=== PATIENT | female | born 1985 | race Caucasian/White ===

== ENCOUNTER 2019-05-12 19:07 | Emergency (ER) | payer MEDICAID, SELFPAY ==
[2019-05-12 19:08] VITALS: BP 133/98; PULSE 110; RESP 18; TEMP 37.1; O2SAT 97; BMI 31.1
--- NOTE | 2019-05-12 19:46 | W.ED.EXTPRO ---
HPI - Extremity Problem General: Chief complaint: Extremity Injury, Lower Stated complaint: lump on foot Time Seen by Provider: 05/12/19 19:46 Source: patient Mode of arrival: ambulatory Limitations: no limitations History of Present Illness: HPI Narrative: 33-year-old female comes in for concerns of pain and swelling to the left lower leg and foot. Patient reports family history of blood clots and is concerned that she may have a blood clot. Patient states that her father had psoriasis and similar illnesses as she and he from a blood clot suddenly. Patient appears well. Patient appears in no pain. Review of Systems General: Reports: 10 or more systems reviewed and unremarkable except in HPI and below Musc: Reports: other (pain and swelling right foot and lower leg) PFSH ED PFSH: Social History Smoking and tobacco status: current every day smoker Physical Exam Const: COMMON NORMALS: no apparent distress and oriented x3 GENERAL APPEARANCE: cooperative HENMT: COMMON NORMALS: normocephalic, TM's normal bilaterally and external nose normal HEAD & SCALP: normal to inspection and normocephalic NOSE: external nose normal TYMPANIC MEMBRANE: TM's normal bilaterally MOUTH: oral and palatal mucosa normal THROAT: posterior oropharynx normal Eye: GENERAL EYE: normal appearance of both eyes Neck/C-Spine: COMMON NORMALS: full ROM Lymph: LYMPHATIC: no lymphadenopathy noted Chest: COMMONS NORMALS: inspection of chest normal Resp: COMMON NORMALS: normal respiratory effort EFFORT & INSPECTION: Yes able to speak in complete sentences Cardio: COMMON NORMALS: regular rate and regular rhythm RATE: regular rate RHYTHM: regular rhythm GI: COMMON NORMALS: non-tender : COMMON NORMALS: Yes no CVA tenderness BLADDER/KIDNEY EXAM: Yes no CVA tenderness Back/Pelvis: COMMON NORMALS: no CVA tenderness and thoracic and lumbar spine normal to inspection Extremity: NARRATIVE EXTREMITY EXAM: Psoriatic lesions are noted to bilateral feet. Pulses are intact in bilateral feet. Minimal swelling is noted to the right lower extremity. Patient does report positive Homans sign with evaluation of the right lower extremity. Neuro: COMMON NORMALS: oriented x3 and moves all extremities Psych: COMMON NORMALS: mental status grossly normal and cooperative Skin: COMMON NORMALS: no rashes or lesions noted GENERAL SKIN EXAM: no rashes or lesions noted Course Vital Signs: Vital signs: Vital Signs Temperature 98.7 F 05/12/19 19:08 Pulse Rate 110 H 05/12/19 19:08 Respiratory Rate 18 05/12/19 19:08 Blood Pressure 133/98 05/12/19 19:08 Pulse Oximetry 97 05/12/19 19:08 MDM - Extremity (Nontraumatic) MDM Narrative: Medical decision making narrative: Patient comes in for concerns of right lower extremity pain with increased swelling and skin color changes. Exam noted minimal discoloration to the lower extremity with some mild plaque lesions to the psoriasis. Pulses are intact. No pitting edema is noted. Differential diagnosis includes arthralgia, DVT, tendinitis. Ultrasound of the lower extremity for DVT was negative. Reviewed exam with patient recommended good supportive shoes as patient was wearing flat soled shoes with no significant support to the feet. Also discussed maybe further evaluation for neuropathy. Recommended naproxen twice daily for the next week to see if that would help with her discomfort. Recommend follow-up with primary care for further consideration and treatment. Patient reported understanding. Discharge Plan Discharge Patient Disposition: Home, Self-Care Clinical Impression: Acute pain of right lower extremity, Psoriasis Foot pain Qualifiers: Laterality: unspecified laterality Qualified Code(s): M79.673 - Pain in unspecified foot Condition: Stable Prescriptions: New naproxen 500 mg tablet 500 mg PO Q12H PRN (Reason: pain) Qty: 60 RF: 0 Discharge Orders: Discharge Order (Routine); Ordered 05/12/19 Ordered By: Keith Bowser Referrals: Carroll Dillard APN [Primary Care Provider] - Discharge Diet: Usual diet Discharge Activity: Increase activity as tolerated Patient Instructions: Arthralgia (ED) Activity Restrictions/Additional Instructions: Use Naproxen routinely for the next week for a trial of pain Use acetaminophen for breakthrough pain Wear good supportive shoe Follow-up with primary care in one week Return to ER for worsening symptoms or new concerns Coding Level of Care Code ED Container Finishing Inspector for Willisg Fwd Exam Comprehensive
--- NOTE | 2019-05-12 20:05 | USCV_ITS ---
Elida Omalley Age: 33 Gender: F : 1985 Exam Date: 05/12/2019 20:35 Ordering Phys: Keith Bowser Technologist: Isidoro Clemente Exam Location: [facility] [place] Indication: SWELLING HISTORY: Lower extremity pain. PROCEDURES: Venous duplex imaging was performed in only the right lower extremity. The following venous structures were evaluated: common femoral vein, profunda vein, proximal portion of the greater saphenous vein, superficial femoral vein, and the popliteal vein. In addition, the posterior tibial and peroneal trunk were evaluated. Serial compression, augmentation maneuvers, and spectral Doppler flow evaluation were performed. FINDINGS: Normal 2-D Doppler and augmentation and compressibility throughout the lower extremity venous structures. Additional imaging through the proximal calf veins also reveals no thrombus. Limited evaluation of the greater saphenous vein is patent with no thrombus.. CONCLUSIONS No evidence of right lower extremity DVT. Isaias Reeves MD (Electronically Signed) Final Date: 13 May 2019 16:46 S
[2019-05-12 21:13] VITALS: BP 128/97; PULSE 80; RESP 14; O2SAT 100
== END 2019-05-12 21:14 | disposition home or self-care (01) ==
PROVIDERS: Emergency Provider Nurse Practitioner Family; PCP Nurse Practitioner Family
DX: M79.671 Pain in right foot (principal); M79.89 Other specified soft tissue disorders; F17.200 Nicotine dependence, unspecified, uncomplicated
CPT/HCPCS: 12345; 93971; 99281; 99282

== ENCOUNTER 2020-03-13 09:49 | Emergency (ER) | payer MEDICAID, SELFPAY ==
[2020-03-13 09:54] VITALS: BP 171/119; PULSE 154; TEMP 36.9; O2SAT 98; BMI 36.5
[2020-03-13 10:01] VITALS: PULSE 143; RESP 17; O2SAT 98
--- NOTE | 2020-03-13 10:30 | ED_ITS ---
HPI - General Adult General: Chief complaint: General Medical Stated complaint: Breast pain/Swelling Time Seen by Provider: 03/13/20 09:56 History of Present Illness: HPI narrative: Patient is a 34-year-old female comes to the ED with bilateral breast pain and swelling. Patient has past medical history of psoriatic arthritis. She does not currently take anything for psoriatic arthritis. Patient was seen at PCP 2 days ago for same complaint and they told her that breast pain and redness of skin on breasts is probably likely due to sporadic arthritis and patient was given a steroid shot while at PCP. Patient says she has not had any improvement in symptoms since . Patient says she has had breast tenderness for over a month. Within the last week she noticed that she is having breast swelling and erythema on the skin of the breast. She states that her right breast is more painful than her left. She describes the pain as a burning sensation and she rates it a 7 out of 10. Right areola occasionally inverts, but is not inverted at this time. She also feels a tender nodule under her right axillary region. Patient did undergo bilateral breast reduction surgery over 10 years ago. Denies any fever, chills, nipple discharge, vaginal bleeding/discharge. Endorses some night sweats and says that she will get her psoriasis flares up on her hands and feet but is not currently having a flare. Patient says her mother's side has a history of breast cancer. Associated symptoms: Deny chest pain, dyspnea, headache(s), nausea, rash, palpitations or vomiting Review of Systems Const: Reports: night sweats; Denies: fever(s), chills or fatigue Eyes: Denies: change in vision or eye discomfort ENMT: Denies: throat pain, odynophagia, nasal discharge or nasal congestion Card: Denies: chest pain, palpitations, edema, swelling of feet/ankles, dyspnea on exertion or orthopnea Resp: Denies: dyspnea, productive cough or non-productive cough GI: Denies: abdominal pain, nausea, vomiting, diarrhea, constipation or hematochezia : Denies: flank pain, dysuria or hematuria Musc: Denies: neck pain, back pain or extremity swelling Skin/Breast: Reports: breast tenderness, breast pain (bilateral breast pain), breast swelling and breast skin changes (redness); Denies: rash, new lesions or nipple discharge Neuro: Denies: headache(s), numbness in extremities or weakness in extremities PFSH ED PFSH: Social History Smoking and tobacco status: current every day smoker Physical Exam Const: COMMON NORMALS: patient oriented x3 and alert GENERAL APPEARANCE: cooperative, comfortable and anxious HENMT: COMMON NORMALS: normocephalic HEAD & SCALP: normocephalic MOUTH: Normal oral and palatal mucosa present THROAT: posterior oropharynx normal and uvula midline Neck/C-Spine: COMMON NORMALS: supple GENERAL: Yes normal visual inspection Chest: BREAST/AXILLA PALPATION: Yes abnormal palpation of the axilla right Details: mass (1.5) Details: tender, nodular and fluctuant and tenderness, left Details: mass (Multiple small less than 0.5 cm size) Details: mobile, nodular and fluctuant NIPPLE/AREOLA: Yes nipples/areola normal and No nipple discharge OTHER: Breast exam performed. Nurse was present during exam. No nodules or mass palpated on breast bilaterally. Patient reported tenderness throughout both right and left breast upon exam. Erythema of breast skin bilaterally with no warmth. Resp: COMMON NORMALS: normal respiratory effort, No retractions, No use of accessory muscles and clear to auscultation bilaterally AUSCULTATION: clear to auscultation bilaterally Cardio: COMMON NORMALS: regular rate, regular rhythm, S1 normal heart sound present, S2 normal heart sound present, No gallops present (Cardio), No clicks present (Cardio), No murmurs present (Cardio) and Peripheral pulses 2+ throughout RATE: regular rate RHYTHM: regular rhythm HEART SOUNDS: S1 normal heart sound present and S2 normal heart sound present PERIPHERAL PULSES: Peripheral pulses 2+ throughout GI: COMMON NORMALS: Normal to inspection, nondistended, normoactive bowel sounds present, Soft to palpation, non-tender and no masses PALPATION: Yes Soft to palpation : COMMON NORMALS: Yes no CVA tenderness BLADDER/KIDNEY EXAM: Yes no CVA tenderness Back/Pelvis: COMMON NORMALS: no CVA tenderness Extremity: COMMON NORMALS: normal to inspection Neuro: COMMON NORMALS: patient oriented x3 and moves all extremities SENSORIUM/ORIENTATION: Yes alert Psych: MOOD & AFFECT: Yes anxious and Yes tearful Skin: GENERAL SKIN EXAM: dry skin Course Vital Signs: Vital signs: Vital Signs Temperature 98.4 F 03/13/20 13:41 Pulse Rate 97 03/13/20 13:41 Respiratory Rate 18 03/13/20 13:41 Blood Pressure 142/98 03/13/20 13:41 Pulse Oximetry 98 03/13/20 13:41 MDM - General Adult MDM Narrative: Medical decision making narrative: Patient is a 34-year-old female comes to the ED with bilateral breast tenderness and erythema. Patient has a history of psoriatic arthritis. Patient was seen at her PCP for same complaint 2 days ago and the PCP determined this was likely due to her psoriatic arthritis and she was given a steroid injection to help symptoms. Patient is very anxious and worried about her current symptoms. She is emotional and crying during history and exam. Exam findings?tenderness to breast bilaterally throughout the breast. Erythema of skin without any warmth. No nodules or masses palpated on breast. No nipple discharge seen. Some palpable lymph nodes under both right and left axillary. Ultrasound of breasts showed no masses or cysts seen. While here in the ED patient was given some morphine and hydrocodone to help with pain and she was also given a dose of Ativan to help with anxiety. Patient was diagnosed with some breast tenderness and erythema of breath and told to follow-up with her PCP on Sunday to discuss getting a mammogram. I discharged her with a prescription for Medrol Dosepak to help with breast symptoms if due to inflammatory disease and Vistaril for anxiety. Return to ED precautions given. Patient understood and agreed with plan. Imaging Data^: US: Attestation: I personally reviewed and interpreted this imaging study as follows: Radiologist's impression: [address] [address] Ultrasound Report Signed Patient: Elida Omalley Unit #: [id number] : 1985 Age/Sex: 34 / F ADM Date: 03/13/20 Loc: ER Room/Bed: Attending Dr: Ordering Provider/Ordering MD: Silviano Green Date of Service: 03/13/20 Procedure(s): US breast BI complete [id number] Accession Number(s): [id number] Report Number: [id number] PROCEDURE INFORMATION: Exam: US bilateral Breast, Complete Exam date and time: 03/13/2020 11:23 AM Age: 34 years old Clinical indication: Breast pain; Bilateral; Patient HX: H/o breast reduction (some years ago); Additional info: Bilateral breast pain TECHNIQUE: Imaging protocol: Complete ultrasound of all four quadrants of the bilateral breast and the retroareolar regions, including ultrasound of the axillae when performed. COMPARISON: Delete brackets US Breast Limited RIGHT [id number] 03/16/2016 2:17 PM FINDINGS: Bilateral Breast: There is unremarkable soft tissue sonographic architecture seen within the breasts. Negative for sonographic evidence of solid or cystic mass lesions. No evidence of duct ectasia is seen. No subcutaneous fluid collections are noted. Comparison to prior right breast sonogram similar findings is seen US/US breast BI complete [id number] IMPRESSION: Negative left breast sonogram. ASSESSMENT: BI-RADS 1 negative exam Dictated By: Ab De Leon Signed By: Ab De Leon Signed Date/Time: 03/13/20 1307 DD/ 1306 EKG Data^: EKG 1: Attestation: I personally reviewed and interpreted this EKG as follows: EKG interpretation date: 03/13/20 Interpretation: Sinus tachycardia, 101 bpm, no ST segment elevation or depression seen. Computer generated interpretation: Breast Ultrasound 03/13/20 10:53 IMPRESSION: Negative left breast sonogram. ASSESSMENT: BI-RADS 1 negative exam Discharge Plan Discharge Patient Disposition: Home Clinical Impression: Breast tenderness, Erythema of breast Condition: Stable Prescriptions: New Medrol (Eliel) 4 mg tablets,dose pack See Rx Instructions .ROUTE .COMPLEX Qty: 21 RF: 0 Vistaril 50 mg capsule 50 mg PO Q8H PRN (Reason: anxiety) Qty: 30 RF: 0 No Action trazodone 50 mg tablet 50 mg PO BEDTIME@1800 RF: 0 One-A-Day Women's Complete 18 mg-400 mcg- 25 mcg Tablet 1 tab PO DAILY@0800 RF: 0 Discharge Orders: Discharge ED (Routine); Ordered 03/13/20 Ordered By: Silviano Green Referrals: Carroll,YONI Dillard [Primary Care Provider] - Discharge Diet: Regular Discharge Activity: Resume usual activity Patient Instructions: Breast Pain Activity Restrictions/Additional Instructions: Follow-up with medical provider as directed in 7 to 10 days for reevaluation. Discuss with your PCP about potentially getting a mammogram if needed for further evaluation of breast pain. Take medications as prescribed. Return to the ER or your medical provider if condition worsens. Please read and understand discharge instructions. If any questions, please ask. Coding Level of Care Code ED Bricklayer Paving Brick for Chg Fwd Exam Comprehensive
--- NOTE | 2020-03-13 10:30 | ECG_ITS ---
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 Measurements Intervals [place] Rate: 101 P: 55 AR: 141 QRS: 64 QRSD: 86 T: 43 QT: 312 QTc: 405 Interpretive Statements SINUS TACHYCARDIA POSSIBLE LEFT ATRIAL ENLARGEMENT [-0.1mV P WAVE IN V1/V2] Compared to ECG 04/28/2017 09:53:45 Sinus rhythm no longer present Electronically Signed On 03-13-2020 10:53:39 [employer] by Sina Blandon M.D. [id number]
[2020-03-13 10:47] VITALS: RESP 18
[2020-03-13] MEDS: morphine 4 mg/mL SDV 1 mL IM (10:47)
--- NOTE | 2020-03-13 10:53 | USR_ITS ---
PROCEDURE INFORMATION: Exam: US bilateral Breast, Complete Exam date and time: 03/13/2020 11:23 AM Age: 34 years old Clinical indication: Breast pain; Bilateral; Patient HX: H/o breast reduction (some years ago); Additional info: Bilateral breast pain TECHNIQUE: Imaging protocol: Complete ultrasound of all four quadrants of the bilateral breast and the retroareolar regions, including ultrasound of the axillae when performed. COMPARISON: Delete brackets US Breast Limited RIGHT [id number] 03/16/2016 2:17 PM FINDINGS: Bilateral Breast: There is unremarkable soft tissue sonographic architecture seen within the breasts. Negative for sonographic evidence of solid or cystic mass lesions. No evidence of duct ectasia is seen. No subcutaneous fluid collections are noted. Comparison to prior right breast sonogram similar findings is seen US/US breast BI complete [id number] IMPRESSION: Negative left breast sonogram. ASSESSMENT: BI-RADS 1 negative exam
[2020-03-13 11:18] VITALS: BP 171/119; PULSE 103; RESP 18; TEMP 36.9; O2SAT 97
[2020-03-13] MEDS: LORazepam 2 mg Tablet PO (11:26)
[2020-03-13 12:41] VITALS: BP 157/84; PULSE 101; RESP 18; TEMP 36.9; O2SAT 98
[2020-03-13] MEDS: HYDROcodone-acetaminophen 7.5-325 mg Tablet 1 TAB PO ×2 (12:49→13:56)
[2020-03-13 13:41] VITALS: BP 142/98; PULSE 97; RESP 18; TEMP 36.9; O2SAT 98
== END 2020-03-13 13:58 | disposition home or self-care (01) ==
PROVIDERS: Emergency Provider Physician Assistant; PCP Nurse Practitioner Family
DX: N64.4 Mastodynia (principal); L53.8 Other specified erythematous conditions; F17.210 Nicotine dependence, cigarettes, uncomplicated
CPT/HCPCS: 12345; 76641; 93005; 96372; 99281; 99283; J2270

== ENCOUNTER 2020-03-17 15:22 | Outpatient (CLI) | payer BC, MEDICAID, SELFPAY ==
[2020-03-17 16:03] LABS: Basophils # 0.1 10^3/uL (0.0-0.1); Basophils % 0.5 %; Eosinophils # 0.3 10^3/uL (0.0-0.8); Eosinophils % 2.6 %; Hematocrit 41.9 % (37.0-47.0); Lymphocytes # 5.8 10^3/uL (0.8-4.8); Lymphocytes % 45.5 %; Mean Corpuscular HGB Conc 33.4 g/dL (30.0-36.0); Mean Corpuscular Hemoglobin 31.6 pg (28.0-34.0); Mean Corpuscular Volume 94.6 fL (81-99); Mean Platelet Volume 9.9 fL (7.4-10.4); Monocytes % 7.5 %; Neutrophils # 5.57 10^3/uL (1.8-7.7); Neutrophils % 43.5 %; Nucleated Red Blood Cells % 0 %; Platelet Count 309 10^3/cmm (130-400); Red Blood Count 4.43 10^6/uL (4.1-5.3); Red Cell Distribution Width 12.3 % (12.1-15.1); White Blood Count 12.8 10^3/uL (4.0-10.0)
[2020-03-17 16:33] LABS: Alanine Aminotransferase 14 U/L (0-33); Alkaline Phosphatase 48 IU/L (35-105); Anion Gap 11.6 (5-19); Aspartate Amino Transferase 9 U/L (0-32); Blood Urea Nitrogen 10 mg/dL (6-20); C Reactive Protein 3.2 mg/L (0.0-4.9); Calcium 8.5 mg/dL (8.5-10.5); Carbon Dioxide 25 mmol/L (22-29); Chloride 105 mmol/L (98-107); Chol HDL Ratio 4.66 mg/dL (0.0-4.40); Cholesterol 163 mg/dL (0-200); Follicle Stimulating Hormone 5.3 mIU/mL; Globulin 2.5 g/dL (1.3-4.6); Glomerular Filtration Rate 96.4 mL/min (90-130); Glucose 97 mg/dL (65-115); HDL Cholesterol 35 mg/dL (60-100); LDL Cholesterol Calculated 71 mg/dL (50-129); LDL HDL Ratio 2.03 RATIO (0.00-3.22); Osmolality Calculated 285 mOsm/kg (285-295); Potassium 3.6 mmol/L (3.5-5.1); Sodium 138 mmol/L (136-145); Thyroid Stimulating Hormone 0.87 uIU/mL (0.27-4.20); Total Bilirubin 0.2 mg/dL (0.15-1.2); Total Protein 6.5 g/dL (6.6-8.7); Triglycerides 285 mg/dL (0-150)
[2020-03-17 16:34] LABS: Estmated Average Glucose 97
[2020-03-17 17:18] LABS: Testosterone Total 8.4 ng/dL (8.4-48.1)
[2020-03-17 17:33] LABS: Erythrocyte Sedimentation Rate 15 mm/hr (0-15)
[2020-03-17 19:45] LABS: Slide Review Slide Review Perform
[2020-03-19 09:38] LABS: T4 Total 6.6 mcg/dL (5.1-11.9)
[2020-03-19 14:17] LABS: Anti-Nuclear Antibody Screen NEGATIVE (NEGATIVE)
== END 2020-03-17 15:23 | disposition home or self-care (01) ==
PROVIDERS: PCP Nurse Practitioner Family; Visit Provider Nurse Practitioner Family
DX: M19.90 Unspecified osteoarthritis, unspecified site (principal); L40.9 Psoriasis, unspecified; M25.50 Pain in unspecified joint; E66.01 Morbid (severe) obesity due to excess calories
CPT/HCPCS: 36415; 80053; 80061; 82670; 83001; 83036; 84144; 84403; 84436; 84443; 85025; 85651; 86038; 86140

== ENCOUNTER 2020-03-25 10:52 | Outpatient (CLI) | payer BC, SELFPAY ==
--- NOTE | 2020-03-25 10:55 | MM_ITS ---
WS: [id number] DIAGNOSTIC BILATERAL DIGITAL MAMMOGRAM WITH CAD RIGHT breast ultrasound, limited HISTORY: FIBROCYSTIC breasts, bilateral BREAST PAIN COMPARISON: 03/16/2016, 03/12/2006 and 03/13/2020 TECHNIQUE: Bilateral craniocaudad, mediolateral oblique, and mediolateral views are submitted. Spot c ompression RIGHT CC and MLO. Computer aided detection utilized. Breast composition: There are scattered areas of fibroglandular density. No soft tissue masses. No sk in thickening. There are a few benign-appearing calcifications within each breast. No underlying abno rmality noted adjacent to the medial RIGHT areolar. RIGHT breast ultrasound, limited. Superficial hypoechoic nodule measuring 5 x 3 x 4 mm at 2:00 in subareolar region. This is most typic al for benign sebaceous cyst. There is no increased vascularity. Otherwise no masses or soft tissue a bnormalities are identified. MM/[place] [id number] IMPRESSION: BI-RADS: 2-Benign FOLLOW UP: See Report 5 mm nodule in the subareolar region of the RIGHT breast. This is most typical for a sebaceous cyst. If this nodule increases in size reevaluation by ultrasou nd can be obtained or surgical excision. Typically sebaceous cysts are not biop sied as they can incite a significant inflammatory reaction.
--- NOTE | 2020-03-25 11:33 | US_ITS ---
WS: [id number] DIAGNOSTIC BILATERAL DIGITAL MAMMOGRAM WITH CAD RIGHT breast ultrasound, limited HISTORY: FIBROCYSTIC breasts, bilateral BREAST PAIN COMPARISON: 03/16/2016, 03/12/2006 and 03/13/2020 TECHNIQUE: Bilateral craniocaudad, mediolateral oblique, and mediolateral views are submitted. Spot c ompression RIGHT CC and MLO. Computer aided detection utilized. Breast composition: There are scattered areas of fibroglandular density. No soft tissue masses. No sk in thickening. There are a few benign-appearing calcifications within each breast. No underlying abno rmality noted adjacent to the medial RIGHT areolar. RIGHT breast ultrasound, limited. Superficial hypoechoic nodule measuring 5 x 3 x 4 mm at 2:00 in subareolar region. This is most typic al for benign sebaceous cyst. There is no increased vascularity. Otherwise no masses or soft tissue a bnormalities are identified. US/US breast RT limited* [id number] IMPRESSION: BI-RADS: 2-Benign FOLLOW UP: See Report 5 mm nodule in the subareolar region of the RIGHT breast. This is most typical for a sebaceous cyst. If this nodule increases in size reevaluation by ultrasou nd can be obtained or surgical excision. Typically sebaceous cysts are not biop sied as they can incite a significant inflammatory reaction.
== END 2020-03-25 10:53 | disposition home or self-care (01) ==
LOC: RADSHAW 10:54
PROVIDERS: PCP Nurse Practitioner Family; Visit Provider Nurse Practitioner Family
DX: N60.12 Diffuse cystic mastopathy of left breast (principal); N60.11 Diffuse cystic mastopathy of right breast; N64.4 Mastodynia; N63.41 Unspecified lump in right breast, subareolar
CPT/HCPCS: 76642; 77066

== ENCOUNTER 2020-04-09 11:59 | Emergency (ER) | payer BC, SELFPAY ==
[2020-04-09 12:12] VITALS: BP 137/83; PULSE 100; RESP 18; TEMP 36.7; O2SAT 97; BMI 36.5
--- NOTE | 2020-04-09 12:47 | ED_ITS ---
HPI - Abdominal Pain General: Chief Complaint: Abdominal Pain Stated Complaint: SHOULDER/UPPER AB PAIN Time Seen by Provider: 04/09/20 12:11 History of Present Illness: HPI narrative: Patient is a 34-year-old female comes to the ED with abdominal pain, nausea and decreased appetite. Past medical history of cholecystectomy and appendectomy. Patient says symptoms started approximately 3 days ago. She reports not eating much at all for the past couple days and has had no appetite. She continues to feel nauseous and has 7 out of 10 abdominal pain in the right upper quadrant. Patient does report diarrhea currently. Denies fever, chills, dysuria or hematuria. Associated Symptoms: Reports diarrhea and nausea; Denies chills, constipation, dysuria, fever(s), hematochezia, hematuria and vomiting Review of Systems Const: Denies: fever(s), chills or fatigue Eyes: Denies: change in vision or eye discomfort ENMT: Denies: throat pain, odynophagia, nasal discharge or nasal congestion Card: Denies: chest pain, palpitations, edema, swelling of feet/ankles, dyspnea on exertion or orthopnea Resp: Denies: dyspnea, productive cough or non-productive cough GI: Reports: abdominal pain, nausea and diarrhea; Denies: vomiting, constipation or hematochezia : Reports: flank pain; Denies: dysuria or hematuria Musc: Denies: neck pain, back pain or extremity swelling Skin/Breast: Denies: rash or new lesions Neuro: Denies: headache(s), numbness in extremities or weakness in extremities PFS ED PFSH: Social History Smoking and tobacco status: current every day smoker Physical Exam Const: COMMON NORMALS: patient oriented x3 and alert GENERAL APPEARANCE: cooperative, comfortable and anxious HENMT: COMMON NORMALS: normocephalic HEAD & SCALP: normocephalic MOUTH: Normal oral and palatal mucosa present THROAT: posterior oropharynx normal and uvula midline Eye: COMMON NORMALS: Equal, round and reactive pupils present PUPIL: Yes Equal, round and reactive pupils present Neck/C-Spine: COMMON NORMALS: supple GENERAL: Yes normal visual inspection Resp: COMMON NORMALS: normal respiratory effort, No retractions, No use of accessory muscles and clear to auscultation bilaterally AUSCULTATION: clear to auscultation bilaterally Cardio: COMMON NORMALS: regular rate, regular rhythm, S1 normal heart sound present, S2 normal heart sound present, No gallops present (Cardio), No clicks present (Cardio), No murmurs present (Cardio) and Peripheral pulses 2+ throughout RATE: regular rate RHYTHM: regular rhythm HEART SOUNDS: S1 normal heart sound present and S2 normal heart sound present PERIPHERAL PULSES: Peripheral pulses 2+ throughout GI: COMMON NORMALS: Normal to inspection, nondistended, normoactive bowel sounds present, Soft to palpation and no masses PALPATION: Yes Soft to palpation and Yes Tenderness to palpation present (GI) Details: RUQ : BLADDER/KIDNEY EXAM: Yes CVA tenderness on the right Back/Pelvis: GENERAL BACK: Yes CVA tenderness CVA tenderness: right Extremity: COMMON NORMALS: normal to inspection Neuro: COMMON NORMALS: patient oriented x3 SENSORIUM/ORIENTATION: Yes alert GAIT: Yes Normal gait present Psych: MOOD & AFFECT: Yes anxious and Yes tearful Skin: GENERAL SKIN EXAM: dry skin Course Reevaluation(s): Reevaluation #1: After patient received IV morphine, fluids and Zofran her symptoms improved here in the ED. Patient ready to be discharged home. Vital Signs: Vital signs: Vital Signs Temperature 98.0 F 04/09/20 12:12 Pulse Rate 98 04/09/20 15:16 Respiratory Rate 18 04/09/20 15:16 Blood Pressure 142/107 04/09/20 15:16 Pulse Oximetry 98 04/09/20 15:16 MDM - Abdominal Pain MDM Narrative: Medical decision making narrative: Patient is a 33-year-old female who comes to the ED with right upper quadrant abdominal pain and nausea. Denies fever, chills, UTI symptoms. Past medical history of cholecystectomy and appendectomy. Physical exam findings are remarkable for right upper quadrant abdominal tenderness and some right CVA tenderness. Vitals stable. White blood cell count 14 and the rest of CBC and CMP were unremarkable. UA showed no signs of UTI. hCG negative and lipase 35. CT of abdomen and pelvis showed no acute findings. Patient's symptoms improved after IV fluids, morphine and Zofran. Patient diagnosed with abdominal pain and discharged home with some Zofran and Bentyl. Return to ED precautions given. Follow-up with her PCP in 7 to 10 days for reevaluation. Patient understood and agreed with plan. Lab Data: Labs: Lab Results 04/09/20 04/09/20 04/09/20 Range/Units 13:20 13:20 13:20 WBC 14.0 H (4.0-10.0) 10^3/ uL RBC 4.77 (4.1-5.3) 10^6/u L Hgb 15.2 (11.5-15.3) g/dL Hct 45.3 (37.0-47.0) % MCV 95.0 (81-99) fL MCH 31.9 (28.0-34.0) pg MCHC 33.6 (30.0-36.0) g/dL RDW 12.5 (12.1-15.1) % Plt Count 312 (130-400) 10^3/c mm MPV 10.0 (7.4-10.4) fL Neut % (Auto) 62.6 % Lymph % (Auto) 29.1 % Vermilion % (Auto) 6.9 % Eos % (Auto) 0.6 % Baso % (Auto) 0.4 % Neut # (Auto) 8.74 H (1.8-7.7) 10^3/u L Lymph # (Auto) 4.1 (0.8-4.8) 10^3/u L Vermilion # (Auto) 1.0 H (0.2-0.9) 10^3/u L Eos # (Auto) 0.1 (0.0-0.8) 10^3/u L Baso # (Auto) 0.1 (0.0-0.1) 10^3/u L Nucleated RBC % (a uto) 0 % Nucleated RBCs # 0.0 /100WBC Sodium Cancelled Potassium Cancelled Chloride Cancelled Carbon Dioxide Cancelled Anion Gap Cancelled BUN Cancelled Creatinine Cancelled GFR Calculation Cancelled Glucose Cancelled Calculated Osmolal ity Cancelled Calcium Cancelled Total Bilirubin Cancelled AST Cancelled ALT Cancelled Alkaline Phosphata se Cancelled Total Protein Cancelled Albumin Cancelled Globulin Cancelled Lipase Cancelled HCG, Qual Negative (Negative) Urine Color (Yellow) Urine Appearance (CLEAR) Urine pH (5-7) Ur Specific Gravit y (1.005-1.030) Urine Protein (Negative) Urine Glucose (UA) (Normal) Urine Ketones (Negative) Urine Blood (Negative) Urine Nitrate (Negative) Urine Bilirubin (Negative) Urine Urobilinogen (Negative) mg/dL Ur Leukocyte Deyanira ase (Negative) Urine RBC (0-2) /hpf Urine WBC (0-5) /hpf Ur Squamous Epith Cells (0-5) /hpf Amorphous Sediment Urine Bacteria (NONE) /hpf Urine Mucus /hpf 04/09/20 04/09/20 Range/Units 13:20 14:05 WBC (4.0-10.0) 10^3/ uL RBC (4.1-5.3) 10^6/u L Hgb (11.5-15.3) g/dL Hct (37.0-47.0) % MCV (81-99) fL MCH (28.0-34.0) pg MCHC (30.0-36.0) g/dL RDW (12.1-15.1) % Plt Count (130-400) 10^3/c mm MPV (7.4-10.4) fL Neut % (Auto) % Lymph % (Auto) % Vermilion % (Auto) % Eos % (Auto) % Baso % (Auto) % Neut # (Auto) (1.8-7.7) 10^3/u L Lymph # (Auto) (0.8-4.8) 10^3/u L Vermilion # (Auto) (0.2-0.9) 10^3/u L Eos # (Auto) (0.0-0.8) 10^3/u L Baso # (Auto) (0.0-0.1) 10^3/u L Nucleated RBC % (a uto) % Nucleated RBCs # /100WBC Sodium 136 Potassium 3.9 Chloride 104 Carbon Dioxide 23 Anion Gap 12.9 BUN 7 Creatinine 0.7 GFR Calculation 96.4 Glucose 89 Calculated Osmolal ity 279 L Calcium 8.9 Total Bilirubin 0.3 AST 13 ALT 14 Alkaline Phosphata se 50 Total Protein 7.3 Albumin 4.2 Globulin 3.1 Lipase 35 HCG, Qual (Negative) Urine Color Straw (Yellow) Urine Appearance Clear (CLEAR) Urine pH 5 (5-7) Ur Specific Gravit y 1.020 (1.005-1.030) Urine Protein Neg (Negative) Urine Glucose (UA) Norm (Normal) Urine Ketones Negative (Negative) Urine Blood Neg (Negative) Urine Nitrate Negative (Negative) Urine Bilirubin Neg (Negative) Urine Urobilinogen Norm (Negative) mg/dL Ur Leukocyte Deyainra ase Negative (Negative) Urine RBC None (0-2) /hpf Urine WBC None (0-5) /hpf Ur Squamous Epith Cells 0-4 H (0-5) /hpf Amorphous Sediment Not Reportable Urine Bacteria Trace (NONE) /hpf Urine Mucus 1+ /hpf Imaging Data ^: CT Abd/Pel: Attestation: I personally reviewed and interpreted this imaging study as follows: Radiologist's impression: [address] [place] [address] CT Scan Report Signed Patient: Elida Omalley Unit #: [id number] : 1985 Age/Sex: 34 / F ADM Date: 04/09/20 Loc: ER Room/Bed: Attending Dr: Ordering Provider/Ordering MD: Silviano Green Date of Service: 04/09/20 Procedure(s): CT abdomen pelvis w con* [id number] Accession Number(s): [id number] Report Number: [id number] WS: [id number] CT ABDOMEN AND PELVIS WITH CONTRAST HISTORY: abdominal pain-Right side, decreased appetite and nausea. TECHNIQUE: Imaging performed of the abdomen and pelvis with IV contrast. Single phase imaging of the abdomen. Coronal and sagittal reformats are submitted. All CT scans at [facility] use at least one of these dose optimization techniques: automated exposure control; mA and/or kV adjustment per patient size (includes targeted exams where dose is matched to clinical indication); or iterative reconstruction. IV CONTRAST: Omnipaque 300; 95 mL IV. Oral contrast: No DLP: 1857.51 mGy.cm COMPARISON: 01/15/2015 Lower thorax: Lung bases are clear. Heart is normal size. Small hiatal hernia. Liver/biliary system: Normal size liver. Very slight intrahepatic bile duct dilatation is probably physiologic. Common bile duct does not appear dilated. 8 mm cyst in the LEFT lobe of the liver. Gallbladder: Status post cholecystectomy. Pancreas: Normal. Spleen: Normal. Adrenal glands: Normal. Right kidney: Normal. Left kidney: Normal. Aorta: Normal. Lymphadenopathy: None. Free fluid: None. GI tract: Prior appendectomy. No mass or obstructing lesion within the GI tract. The cecum is within the LEFT pelvis which is been described on prior studies. Probably due to prior congenital malrotation. Majority of the small bowel was within the lateral RIGHT abdomen. There is no obstruction. Scattered colonic diverticula without diverticulitis. Abdominal wall: Unremarkable abdominal wall. No hernia. Pelvis: Slightly retroverted uterus. No fibroid or mass. Bones: Unilateral LEFT L5 pars defect. There is also very slight lateral subluxation of the LEFT femoral head with respect to the acetabulum which is probably congenital also in not a new or acute finding. CT/CT abdomen pelvis w con* [id number] IMPRESSION: 1. No acute abdominal or pelvic abnormalities are identified. 2. Prior appendectomy and cholecystectomy. 3. Congenital malrotation of the GI tract. Dictated By: Belkis Little DO Signed By: Belkis Little DO Signed Date/Time: 04/09/201434 DD/ 25 Discharge Plan Discharge Patient Disposition: Home Clinical Impression: Abdominal pain Qualifiers: Abdominal location: right upper quadrant Qualified Code(s): R10.11 - Right upper quadrant pain Condition: Stable Prescriptions: New dicyclomine 20 mg tablet 20 mg PO QID PRN (Reason: abdominal pain) Qty: 30 RF: 0 Zofran 4 mg tablet 4 mg PO Q8H PRN (Reason: nausea and vomiting) Qty: 20 RF: 0 No Action trazodone 50 mg tablet 50 mg PO BEDTIME@1800 RF: 0 One-A-Day Women's Complete 18 mg-400 mcg- 25 mcg Tablet 1 tab PO DAILY@0800 RF: 0 hydroxyzine pamoate [Vistaril] 50 mg capsule 50 mg PO Q8H PRN (Reason: anxiety) Qty: 30 RF: 0 Prilosec OTC 20 mg Tablet,Delayed Release (Dr/Ec) 20 mg PO DAILY@0800 RF: 0 Discharge Orders: Discharge ED (Routine); Ordered 04/09/20 Ordered By: Silviano Green Referrals: Gilma Hodges APN [Primary Care Provider] - Discharge Diet: Advance as tolerated Discharge Activity: Increase activity as tolerated Patient Instructions: Abdominal Pain (ED) Activity Restrictions/Additional Instructions: Follow-up with medical provider as directed in 7 days for reevaluation. Take medications as prescribed. Advance diet as tolerated. Return to the ER or your medical provider if condition worsens. Please read and understand discharge instructions. If any questions, please ask. Coding Level of Care Code ED Patient Safety Sitter for Rebecca Fwd Exam Comprehensive
--- NOTE | 2020-04-09 12:58 | CT_ITS ---
WS: [id number] CT ABDOMEN AND PELVIS WITH CONTRAST HISTORY: abdominal pain-Right side, decreased appetite and nausea. TECHNIQUE: Imaging performed of the abdomen and pelvis with IV contrast. Single phase imaging of the abdomen. Coronal and sagittal reformats are submitted. All CT scans at [facility] use at least one of these dose optimization techniques: automated exposure control; mA and/or kV adjustment per patient size (includes targeted exams where dose is matched to clinical indication); or iterativ e reconstruction. IV CONTRAST: Omnipaque 300; 95 mL IV. Oral contrast: No DLP: 1857.51 mGy.cm COMPARISON: 01/15/2015 Lower thorax: Lung bases are clear. Heart is normal size. Small hiatal hernia. Liver/biliary system: Normal size liver. Very slight intrahepatic bile duct dilatation is probably ph ysiologic. Common bile duct does not appear dilated. 8 mm cyst in the LEFT lobe of the liver. Gallbladder: Status post cholecystectomy. Pancreas: Normal. Spleen: Normal. Adrenal glands: Normal. Right kidney: Normal. Left kidney: Normal. Aorta: Normal. Lymphadenopathy: None. Free fluid: None. GI tract: Prior appendectomy. No mass or obstructing lesion within the GI tract. The cecum is within the LEFT pelvis which is been described on prior studies. Probably due to prior congenital malrotatio n. Majority of the small bowel was within the lateral RIGHT abdomen. There is no obstruction. Scatter ed colonic diverticula without diverticulitis. Abdominal wall: Unremarkable abdominal wall. No hernia. Pelvis: Slightly retroverted uterus. No fibroid or mass. Bones: Unilateral LEFT L5 pars defect. There is also very slight lateral subluxation of the LEFT femo ral head with respect to the acetabulum which is probably congenital also in not a new or acute findi ng. CT/CT abdomen pelvis w con* [id number] IMPRESSION: 1. No acute abdominal or pelvic abnormalities are identified. 2. Prior appendectomy and cholecystectomy. 3. Congenital malrotation of the GI tract.
[2020-04-09] MEDS: morphine 4 mg/mL SDV 1 mL IVP ×2 (13:26→15:06)
[2020-04-09] MEDS: ondansetron 2 mg/ML SDV 2 mL 4 MG IVP (13:26)
[2020-04-09] MEDS: sodium chloride 0.9% 1,000 ML 999 ML IV (13:26)
[2020-04-09 13:51] LABS: Basophils # 0.1 10^3/uL (0.0-0.1); Basophils % 0.4 %; Eosinophils # 0.1 10^3/uL (0.0-0.8); Eosinophils % 0.6 %; Hematocrit 45.3 % (37.0-47.0); Hemoglobin 15.2 g/dL (11.5-15.3); Lymphocytes # 4.1 10^3/uL (0.8-4.8); Lymphocytes % 29.1 %; Mean Corpuscular HGB Conc 33.6 g/dL (30.0-36.0); Mean Corpuscular Hemoglobin 31.9 pg (28.0-34.0); Monocytes % 6.9 %; Neutrophils # 8.74 10^3/uL (1.8-7.7); Neutrophils % 62.6 %; Nucleated Red Blood Cells % 0 %; Platelet Count 312 10^3/cmm (130-400); Red Blood Count 4.77 10^6/uL (4.1-5.3); Red Cell Distribution Width 12.5 % (12.1-15.1)
[2020-04-09 13:53] VITALS: BP 142/107; PULSE 98; RESP 18; O2SAT 98
[2020-04-09 13:57] LABS: Urine Appearance Clear (CLEAR); Urine Color Straw (Yellow)
[2020-04-09 13:58] LABS: Add Urine Culture? No; Bacteria Urine TRACE /hpf; Bilirubin Urine Neg (Negative); Blood Urine Neg (Negative); Glucose Urine UA Norm (Normal); Ketones Urine Negative (Negative); Leukocyte Esterase Urine Negative (Negative); Mucus Urine 1+ /hpf; Nitrate Urine Negative (Negative); Protein Urine Neg (Negative); Squamous Epithelial Cell Urine 0-4 /hpf (0-5); Urobilinogen Urine Norm (Negative); pH Urine 5 (5-7)
[2020-04-09 14:01] LABS: HCG, Serum Qual Negative (Negative)
[2020-04-09] MEDS: iohexol 300 mg/mL 100 mL Btl IV (14:24)
[2020-04-09 14:36] LABS: Alanine Aminotransferase 14 U/L (0-33); Albumin Level 4.2 g/dL (3.5-5.2); Alkaline Phosphatase 50 IU/L (35-105); Blood Urea Nitrogen 7 mg/dL (6-20); Calcium 8.9 mg/dL (8.5-10.5); Carbon Dioxide 23 mmol/L (22-29); Chloride 104 mmol/L (98-107); Globulin 3.1 g/dL (1.3-4.6); Glomerular Filtration Rate 96.4 mL/min (90-130); Glucose 89 mg/dL (65-115); Lipase 35 U/L (13-60); Osmolality Calculated 279 mOsm/kg (285-295); Sodium 136 mmol/L (136-145); Total Bilirubin 0.3 mg/dL (0.15-1.2); Total Protein 7.3 g/dL (6.6-8.7)
[2020-04-09 14:45] LABS: Anion Gap 12.9 (5-19)
[2020-04-09 14:46] LABS: Potassium 3.9 mmol/L (3.5-5.1)
[2020-04-09 14:58] LABS: Aspartate Amino Transferase 13 U/L (0-32)
[2020-04-09 15:16] VITALS: BP 142/107; PULSE 98; RESP 18; O2SAT 98
== END 2020-04-09 15:26 | disposition home or self-care (01) ==
PROVIDERS: Emergency Provider Physician Assistant; PCP Nurse Practitioner Family
DX: R10.11 Right upper quadrant pain (principal); F17.210 Nicotine dependence, cigarettes, uncomplicated
CPT/HCPCS: 36415; 74177; 80053; 81001; 83690; 84703; 85025; 96361; 96374; 96375; 96376; 99284; J2270; J2405; J7030; Q9967

== ENCOUNTER 2021-06-12 15:15 | Emergency (ER) | payer BC, SELFPAY ==
--- NOTE | 2021-06-12 15:20 | XRR_ITS ---
PROCEDURE INFORMATION: Exam: XR Left Hip Exam date and time: 06/12/2021 3:53 PM Age: 35 years old Clinical indication: Left hip; Patient HX: C/O L hip pain after doing squats; Additional info: Injury TECHNIQUE: Imaging protocol: XR Left hip. Views: 2 or 3 views hip with pelvis when performed. COMPARISON: CT abdomen pelvis w con* [id number] 04/09/2020 2:35 PM FINDINGS: Bones/joints: No acute fracture. No hip dislocation. Soft tissues: Unremarkable. XR/XR hip LT 2-3V wo/w pel* [id number] IMPRESSION: No fracture or dislocation.
[2021-06-12 15:22] VITALS: BP 131/85; PULSE 84; RESP 18; TEMP 36.6; O2SAT 97
[2021-06-12 15:26] VITALS: BP 123/75; PULSE 74; RESP 16; TEMP 36.6; O2SAT 96
--- NOTE | 2021-06-12 15:38 | XRR_ITS ---
PROCEDURE INFORMATION: Exam: XR Left Knee Exam date and time: 06/12/2021 3:52 PM Age: 35 years old Clinical indication: Left; Patient HX: C/O L knee pain after doing squats; Additional info: Eval for knee injury TECHNIQUE: Imaging protocol: XR Left knee. Views: 1 or 2 views. COMPARISON: No relevant prior studies available. FINDINGS: Bones/joints: Tiny osteophytes are noted. No fracture or dislocation. Soft tissues: Normal. XR/XR knee LT 1-2V [id number] IMPRESSION: No acute finding. Mild degenerative changes are appreciated.
[2021-06-12 15:42] VITALS: RESP 18
[2021-06-12] MEDS: morphine 4 mg/mL SDV 1 mL IM (15:42)
--- NOTE | 2021-06-12 15:42 | W.ED.GENADLT ---
HPI - General Adult General: Chief complaint: Extremity Injury, Lower Stated complaint: left hip injury Time Seen by Provider: 06/12/21 15:22 History of Present Illness: 35-year-old female without any significant past medical history presenting to the emergency room for evaluation of left hip and knee pain patient tells me that she was squatting 30 pounds of dumbbell 2 days ago when she felt a pop in the left knee and since then has had gradually worsening pain on the left hip. Patient has been unable to bear weight. Denies any other injuries or pain elsewhere. Onset: 2 days ago Duration:2 days Location:home Severity:moderate Associated symptoms: Deny chest pain, dyspnea, nausea, rash, palpitations or vomiting Review of Systems Const: Denies: fever(s) or chills Eyes: Denies: change in vision ENMT: Denies: mouth pain Card: Denies: chest pain or palpitations Resp: Denies: dyspnea or non-productive cough GI: Denies: abdominal pain, nausea, vomiting or diarrhea : Denies: dysuria Musc: Reports: extremity pain (+L hip pain, L knee pain) Skin/Breast: Denies: rash or new lesions Neuro: Denies: weakness in extremities Psych: Reports: other (Normal mood) Garret/Lymph: Denies: easy bruising PFSH ED PFSH: Medical History No pertinent past medical history Social History Smoking and tobacco status: current every day smoker Alcohol intake: never Substance/Drug Use: never Female Reproductive History: Date of last menstrual period: 06/05/21 Physical Exam Const: COMMON NORMALS: alert HENMT: COMMON NORMALS: atraumatic HEAD & SCALP: atraumatic MOUTH: moist mucous membranes not abnormal Eye: COMMON NORMALS: EOMs intact bilaterally and conjunctivae normal CONJUNCTIVA: Yes conjunctivae normal Neck/C-Spine: COMMON NORMALS: full ROM and supple Resp: COMMON NORMALS: normal respiratory effort and clear to auscultation bilaterally AUSCULTATION: clear to auscultation bilaterally Cardio: COMMON NORMALS: regular rate RATE: regular rate GI: COMMON NORMALS: Soft to palpation and non-tender PALPATION: Yes Soft to palpation Back/Pelvis: OTHER: Intact range of motion of the left hip Extremity: COMMON NORMALS: full ROM Neuro: SENSORIUM/ORIENTATION: Yes alert MOTOR EXAM: No Abnormal motor strength present and Other motor observations present (no focal motor deficits) Psych: COMMON NORMALS: speech normal SPEECH: Yes normal speech MOOD & AFFECT: Yes euthymic mood Course Vital Signs: Vital signs: Vital Signs Temperature 98.1 F 06/12/21 16:43 Pulse Rate 68 06/12/21 16:43 Respiratory Rate 16 06/12/21 16:43 Blood Pressure 134/81 06/12/21 16:43 Pulse Oximetry 96 06/12/21 16:43 MDM - General Adult Medical Decision Making 35-year-old female with history of hip dysplasia presenting to the emergency room with complaints acute left hip pain x2 days after squatting with 30 pound dumbbells. On physical exam, patient has full range of motion but mild pain to range of motion of the left hip. Patient has been able to bear weight. X-ray of the hip and knee negative for any acute findings. Patient received Toradol morphine IM with significant improvement in pain. I have given patient crutches to go home with. Patient is afebrile with intact range of motion, do not suspect suspect septic hip at this time. However given presentation of pain with exertion and physical activity, this is likely possible muscle strain vs occult injury of the hip. Patient is given follow-up with primary care provider in 1 week for repeat x-ray should she have continues to have persistent pain. I have given patient follow up with our corrections caseworker to be seen by our outpatient Orthopedics for hip pain and for possible MRI of the hip. Patient aware of a call from our corrections caseworker to schedule for appointment(s) and verbalizes understanding of the importance of following up. Rx: norflex, tylenol, lidocaine patch, and menthol PRN pain, crutches for comfort Disposition: Discharge. Patient counseled regarding diagnostic impression, treatment plan. Patient given ED strict return precautions to return for continuation, worsening, or development of new symptoms. Instructed to f/u w/ PCP regarding symptoms today. Patient verbalized understanding. Lab Data Radiology Impressions Hip/Pelvis X-Ray 06/12/21 15:20 IMPRESSION: No fracture or dislocation. Knee X-Ray 06/12/21 15:38 IMPRESSION: No acute finding. Mild degenerative changes are appreciated. Imaging Data Other Imaging: Radiologist's impression: [address] [address] XRay Report Signed Patient: Elida Omalley Unit #: [id number] : 1985 Age/Sex: 35 / F ADM Date: 06/12/21 Loc: ER Room/Bed: Attending Dr: Ordering Provider/Ordering MD: Griffin Saucedo MD Date of Service: 06/12/21 Procedure(s): XR knee LT 1-2V 71421 Accession Number(s): [id number] Report Number: [id number] PROCEDURE INFORMATION: Exam: XR Left Knee Exam date and time: 06/12/2021 3:52 PM Age: 35 years old Clinical indication: Left; Patient HX: C/O L knee pain after doing squats; Additional info: Eval for knee injury TECHNIQUE: Imaging protocol: XR Left knee. Views: 1 or 2 views. COMPARISON: No relevant prior studies available. FINDINGS: Bones/joints: Tiny osteophytes are noted. No fracture or dislocation. Soft tissues: Normal. XR/XR knee LT 1-2V [id number] IMPRESSION: No acute finding. Mild degenerative changes are appreciated. ? Dictated By: Héctor Howell MD Signed By: Héctor Howell MD Signed Date/Time: 06/12/21 1645 DD/ [address] [address] XRay Report Signed Patient: Elida Omalley Unit #: [id number] : 1985 Age/Sex: 35 / F ADM Date: 06/12/21 Loc: ER Room/Bed: Attending Dr: Ordering Provider/Ordering MD: Lovely Ulrich MD Date of Service: 06/12/21 Procedure(s): XR hip LT 2-3V wo/w pel* [id number] Accession Number(s): [id number] Report Number: [id number] PROCEDURE INFORMATION: Exam: XR Left Hip Exam date and time: 06/12/2021 3:53 PM Age: 35 years old Clinical indication: Left hip; Patient HX: C/O L hip pain after doing squats; Additional info: Injury TECHNIQUE: Imaging protocol: XR Left hip. Views: 2 or 3 views hip with pelvis when performed. COMPARISON: CT abdomen pelvis w con* [id number] 04/09/2020 2:35 PM FINDINGS: Bones/joints: No acute fracture.? No hip dislocation. Soft tissues: Unremarkable. XR/XR hip LT 2-3V wo/w pel* [id number] IMPRESSION: No fracture or dislocation. ? Dictated By: Héctor Howell MD Signed By: Héctor Howell MD Signed Date/Time: 06/12/21 1643 DD/ 1553 Discharge Plan Discharge Patient Disposition: Home Clinical Impression: Acute hip pain Condition: Stable Prescriptions: New acetaminophen 500 mg tablet 500 mg PO Q6H PRN (Reason: pain) 5 Days Qty: 20 0RF lidocaine 5 % adhesive patch,medicated 1 patch topical DAILY PRN (Reason: pain) 30 Days Qty: 30 0RF Rx Instructions: leave on most painful area for up to 12 hrs orphenadrine citrate 100 mg tablet extended release 100 mg PO BID PRN (Reason: pain) 10 Days Qty: 20 0RF Biofreeze (menthol) 5 % gel 1 ea topical BID PRN (Reason: pain) 10 Days Qty: 1 0RF No Action clindamycin HCl 150 mg capsule 450 mg PO TID 7 Days Qty: 63 0RF Discharge Orders: Discharge ED (Routine); Ordered 06/12/21 Ordered By: Griffin Saucedo Referrals: Zen Motta DO [Primary Care Provider] - Discharge Diet: Advance as tolerated Discharge Activity: Increase activity as tolerated Patient Instructions: Hip Pain (ED) Activity Restrictions/Additional Instructions: Our corrections caseworker will have you follow-up with Orthopedics in the next few days for hi pain. You would be expected to have a phone call with our corrections caseworker who will put you on the schedule. You can expect a call from us in the next 2-3 days. If you don't hear from us, call us back in the emergency room at [phone]. Please consider repeating her x-ray in 1 week if you are still having significant pain as we may have missed an occult fracture today. You can either come back to the emergency room or follow-up with your primary care provider to repeat an x-ray. Take your medicine as instructed. Please use crutches as needed for the hip pain. Coding Level of Care Code ED Technician Trainee for Rebecca Gallego Exam Comprehensive
[2021-06-12] MEDS: ketorolac 30 mg/mL INJ IM (15:43)
[2021-06-12 16:43] VITALS: BP 134/81; PULSE 68; RESP 16; TEMP 36.7; O2SAT 96
--- NOTE | 2021-06-13 13:40 | DCPLANNER ---
Addendum entered by Jeannette Mccollum 09/27/21 14:09: Patient had a follow up appointment scheduled with ortho - patient did attend appointment. Addendum entered by Jeannette Mccollum 06/16/21 18:28: Patient has a follow up appointment scheduled for July at 1:[address] Ayers at ortho. Clinic will call patient with appointment information. Original Note: account manager forest service had message to schedule a follow up appointment for patient with ortho. account manager forest service sent patients information to the front office staff at ortho. Patients information will be printed and reviewed. Clinic will call patient with appointment information.
== END 2021-06-12 16:30 | disposition home or self-care (01) ==
PROVIDERS: Emergency Provider Emergency Medicine; PCP Family Medicine
DX: M25.552 Pain in left hip (principal); M25.562 Pain in left knee
CPT/HCPCS: 73502; 73560; 96372; 99284; E0114; J1885; J2270

== ENCOUNTER → 2021-07-07 13:01 | Outpatient (BNVA) | payer BC, SELFPAY | PROVIDERS: PCP Family Medicine; Referring Provider Emergency Medicine; Visit Provider Specialist | DX: M25.552 Pain in left hip (principal); G47.00 Insomnia, unspecified; Q65.89 Other specified congenital deformities of hip; F41.9 Anxiety disorder, unspecified; F32.A Depression, unspecified; L40.50 Arthropathic psoriasis, unspecified; L03.90 Cellulitis, unspecified | CPT/HCPCS: 73502; 80053; 82607; 83036; 85025; 85651; 86140; 86160; 86162; 86235; 86255; 86376; 86431 ==

== ENCOUNTER 2021-08-30 13:38 | Outpatient (CLI) | payer BC, SELFPAY ==
--- NOTE | 2021-08-30 13:55 | US_ITS ---
WS: [id number] EARLY OBSTETRICAL ULTRASOUND (<14 WEEKS). HISTORY: UNKNOWN LMP/HIGH RISK /MISCARRIAGE COMPARISON: None available. Single intrauterine gestational sac is identified. Cardiac activity at 160 BPM. [place]-rump length schuyler sures 1.8 cm which corresponds to a gestation of 8w2d. Small yolk sac and amnion demonstrated. Yolk s ac measures 2.5 mm diameter. Small subchorionic hemorrhage. Subchorionic hemorrhage along the anterio r gestational sac measures 1.5 x 0.3 cm. No free fluid. Both ovaries are identified. Normal size and echogenicity. US/US OB <=14 wk fetus w transvag IMPRESSION: 1. Single intrauterine gestation of 8 weeks 2 days with an EDC of 04/09/2022. 2. Small subchorionic hemorrhage. 3. Normal cardiac activity.
== END 2021-08-30 13:39 | disposition home or self-care (01) ==
PROVIDERS: PCP Family Medicine; Visit Provider Family Medicine
DX: O09.91 Supervision of high risk pregnancy, unspecified, first trimester (principal); Z3A.08 8 weeks gestation of pregnancy
CPT/HCPCS: 76801; 76817

== ENCOUNTER 2022-05-02 11:44 | Emergency (ER) | payer BC, MEDICAID, SELFPAY ==
[2022-05-02 12:04] VITALS: BP 122/86; PULSE 91; RESP 15; TEMP 36.7; O2SAT 100; BMI 26.6
--- NOTE | 2022-05-02 12:24 | XRR_ITS ---
PROCEDURE INFORMATION: Exam: XR Right Elbow Exam date and time: 05/02/2022 11:48 AM Age: 36 years old Clinical indication: Pain; Right; Patient HX: Knot on RT elbow TECHNIQUE: Imaging protocol: Radiologic exam of the right elbow. Views: 3 or more views. COMPARISON: CR XR shoulder RT min 2V* [id number] 05/02/2022 11:44 AM FINDINGS: Bones/joints: No radiographic evidence of acute fracture or dislocation. Alignment anatomic. Mild degenerative changes. No definite effusion. Soft tissues: Nonspecific dorsal soft tissue swelling. XR/XR elbow RT min 3V* [id number] IMPRESSION: Nonspecific dorsal soft tissue swelling. No acute osseous abnormality.
--- NOTE | 2022-05-02 12:24 | ED_ITS ---
HPI - Extremity Problem General: Chief complaint: Extremity Problem,Nontraumatic Stated complaint: Right elbow knot, Swollen and red Time Seen by Provider: 05/02/22 12:10 Source: patient Mode of arrival: ambulatory Limitations: no limitations History of Present Illness: Patient is a 36-year-old female presents to ED today with a complaint of right arm pain and intermittent numbness/paresthesias. Patient states that she has had problems with the arm for approximately a year. 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 Patient states most of her discomfort is from her right shoulder and right elbow. She states she has intermittent paresthesias to the whole hand but mainly to her fourth and fifth digits. She has not noticed any swelling or color/temperature changes to the extremity apart from recently in which she feels her elbow is swollen. MD Complaint: extremity pain Onset (ago): month(s) Pain Consistency: constant Location: right and upper extremity Relieving factors: nothing Exacerbating factors: range of motion Associated symptoms: Reports no associated symptoms; Deny chest pain, fever(s) or rash Review of Systems Const: Denies: fever(s), chills, body aches, fatigue or malaise Card: Denies: chest pain Resp: Denies: dyspnea Musc: Reports: extremity pain, joint pain, joint swelling and limited range of motion; Denies: neck pain, back pain, extremity swelling, joint redness or joint warmth Skin/Breast: Denies: rash Neuro: Reports: numbness in extremities and sensory changes; Denies: weakness in extremities [facility] ED PFSH: Medical History No pertinent past medical history Social History Smoking and tobacco status: current every day smoker Alcohol intake: never Physical Exam Const: COMMON NORMALS: no acute distress, average body habitus, patient oriented x3, no limitations, alert and well nourished Neck/C-Spine: COMMON NORMALS: full ROM GENERAL: Yes normal visual inspection CERVICAL SPINE: Yes Cervical spine tenderness, No step off deformity, Yes Paracervical muscle tenderness, No Trapezius muscle tenderness and No Lhermitte's sign positive Resp: COMMON NORMALS: normal respiratory effort and clear to auscultation bilaterally AUSCULTATION: clear to auscultation bilaterally Cardio: COMMON NORMALS: regular rate and regular rhythm RATE: regular rate RHYTHM: regular rhythm Extremity: COMMON NORMALS: capillary refill normal and no clubbing, cyanosis or edema GENERAL: Yes normal exam except as noted RIGHT UPPER EXTREMITY: Yes shoulder joint and Yes elbow joint OTHER: TTP throughout R shoulder and elbow joints; seemingly full passive ROM although patient is not very cooperative with examination; she has some mild swelling to R elbow without evidence for olecranon bursitis or septic arthritis; she does have worsening paresthesias with Tinel's and Phalen's testing; no diffuse extremity swelling; no color/temp changes when compared to previous; pulses/cap refill normal Neuro: COMMON NORMALS: patient oriented x3, moves all extremities and no focal motor deficits SENSORIUM/ORIENTATION: Yes alert Course Vital Signs: Vital signs: Vital Signs Temperature 98.0 F 05/02/22 12:04 Pulse Rate 91 05/02/22 12:04 Respiratory Rate 15 05/02/22 12:04 Blood Pressure 122/86 05/02/22 12:04 Pulse Oximetry 100 05/02/22 12:04 Oxygen Delivery Me thod 05/02/22 12:04 MDM - Extremity (Nontraumatic) Medical Decision Making DDx-cervical radiculopathy, nerve entrapment/impingement, ulnar radiculopa thy/neuropathy, carpal tunnel syndrome, tendinitis. XRs negative. I think a referral to orthopedics is a good starting place as patient states her symptoms are progressively worsening and are interfering with daily life/functions. Lab Data Radiology Impressions Elbow X-Ray 05/02/22 12:24 IMPRESSION: Nonspecific dorsal soft tissue swelling. No acute osseous abnormality. Shoulder X-Ray 05/02/22 12:24 IMPRESSION: No acute radiographic findings. Discharge Plan Discharge Patient Disposition: Home Clinical Impression: Pain of right upper extremity, Paresthesia of right arm Condition: Stable Prescriptions: New diclofenac sodium 50 mg tablet,delayed release (DR/EC) 50 mg PO Q12H PRN (Reason: pain) Qty: 20 0RF Discontinued prednisone 20 mg tablet 20 mg PO DAILY No Action clindamycin HCl 150 mg capsule 450 mg PO TID 7 Days Qty: 63 0RF hydrocodone-acetaminophen 7.5-325 mg tablet 1 tab PO Q8H PRN doxycycline hyclate 100 mg capsule 100 mg PO BID escitalopram oxalate [Lexapro] 10 mg tablet 10 mg PO DAILY Discharge Orders: Discharge ED (Routine); Ordered 05/02/22 Ordered By: Josi Fountain Referrals: Zen Motta DO [Primary Care Provider] - Coding Level of Care Code ED Poultry Farmer for Willisg Lashonda
--- NOTE | 2022-05-02 12:24 | XRR_ITS ---
PROCEDURE INFORMATION: Exam: XR Right Shoulder Exam date and time: 05/02/2022 11:44 AM Age: 36 years old Clinical indication: Pain; Shoulder; Right; Patient HX: Knot on RT elbow TECHNIQUE: Imaging protocol: Radiologic exam of the right shoulder. Views: 2 or more views. COMPARISON: CR XR chest 2V* [id number] 04/28/2017 9:39 AM FINDINGS: Bones/joints: No radiographic evidence of acute fracture or dislocation. Alignment anatomic. Mild glenohumeral and acromioclavicular osteoarthrosis. Soft tissues: Grossly unremarkable. XR/XR shoulder RT min 2V* [id number] IMPRESSION: No acute radiographic findings.
--- NOTE | 2022-05-02 15:00 | DCPLANNER ---
Addendum entered by Jeannette Mccollum 05/05/22 08:03: industrial engineering manager received the following message from the front office staff at ortho: attempt made to contact patient - left vm and mailed letter to call our clinic to schedule w/ dr hooper. est w/ dr hooper - dr chacon reviewed w/ dr hooper and she ok'd to see patient Original Note: industrial engineering manager had message to schedule a follow up appointment for patient with ortho. industrial engineering manager sent patients information to the front office staff at ortho. Patients information will be printed and reviewed. Clinic will call patient with appointment information.
== END 2022-05-02 13:19 | disposition home or self-care (01) ==
PROVIDERS: Emergency Provider Physician Assistant; PCP Family Medicine
DX: M79.601 Pain in right arm (principal); R20.2 Paresthesia of skin; F17.210 Nicotine dependence, cigarettes, uncomplicated
CPT/HCPCS: 73030; 73080; 99283

== ENCOUNTER 2022-05-23 06:57 | Emergency (ER) | payer BC, MEDICAID, SELFPAY ==
--- NOTE | 2022-05-23 07:16 | XR_ITS ---
WS: [id number] Left foot, 3 views, 05/23/2022 Clinical Data: Stubbed pinky toe Comparison: None. Findings: There is a nondisplaced fracture of the base of the proximal phalanx of the left fifth toe. The obliq ue fracture extends into the joint space. No other fractures are seen. The soft tissues are normal. The joint spaces are unremarkable. XR/XR foot LT min 3V* [id number] Impression: Fracture of the base of proximal phalanx of the left fifth toe.
[2022-05-23 07:17] VITALS: PULSE 95; RESP 16; TEMP 36.6; O2SAT 99
--- NOTE | 2022-05-23 07:17 | W.ED.WOUNDLC ---
HPI - Wound/Laceration General: Chief Complaint: Extremity Injury, Lower Stated Complaint: toe lac on left foot Time Seen by Provider: 05/23/22 07:08 History of Present Illness: Patient is a 36-year-old female comes to the ED with injury to left foot. Injury occurred this morning just prior to arrival. She was walking in her house and kicked the edge of a chair with her fifth toe. She has a laceration in the webspace between her fourth and fifth toe. She rates her pain currently a 9 out of 10. Denies any other injury or trauma. Associated symptoms: Denies chills, fever(s), nausea or vomiting Review of Systems Const: Denies: fever(s), chills or fatigue Eyes: Denies: change in vision or eye discomfort ENMT: Denies: throat pain, odynophagia, nasal discharge or nasal congestion Card: Denies: chest pain, palpitations, edema, swelling of feet/ankles, dyspnea on exertion or orthopnea Resp: Denies: dyspnea, productive cough or non-productive cough GI: Denies: abdominal pain, nausea, vomiting, diarrhea, constipation or hematochezia : Denies: flank pain, dysuria or hematuria Musc: Reports: extremity pain (Left foot-fifth toe); Denies: neck pain, back pain or extremity swelling Skin/Breast: Reports: new lesions (Laceration to left foot fifth toe); Denies: rash Neuro: Denies: headache(s), numbness in extremities or weakness in extremities PFS ED PFSH: Medical History (Updated 05/24/22 @ 07:10 by URSULA Quiñonez) No pertinent family history No pertinent past medical history Social History Smoking and tobacco status: current every day smoker Alcohol intake: never Physical Exam Const: COMMON NORMALS: patient oriented x3 and alert HENMT: COMMON NORMALS: normocephalic HEAD & SCALP: normocephalic MOUTH: Normal oral and palatal mucosa present THROAT: posterior oropharynx normal and uvula midline Neck/C-Spine: COMMON NORMALS: supple GENERAL: Yes normal visual inspection Resp: COMMON NORMALS: normal respiratory effort, No retractions, No use of accessory muscles and clear to auscultation bilaterally AUSCULTATION: clear to auscultation bilaterally Cardio: COMMON NORMALS: regular rate, regular rhythm, S1 normal heart sound present, S2 normal heart sound present, No gallops present (Cardio), No clicks present (Cardio), No murmurs present (Cardio) and Peripheral pulses 2+ throughout RATE: regular rate RHYTHM: regular rhythm HEART SOUNDS: S1 normal heart sound present and S2 normal heart sound present PERIPHERAL PULSES: Peripheral pulses 2+ throughout GI: COMMON NORMALS: Normal to inspection, nondistended, normoactive bowel sounds present, Soft to palpation, non-tender and no masses PALPATION: Yes Soft to palpation : COMMON NORMALS: Yes no CVA tenderness BLADDER/KIDNEY EXAM: Yes no CVA tenderness Back/Pelvis: COMMON NORMALS: no CVA tenderness Extremity: NARRATIVE EXTREMITY EXAM: Left foot?no visible deformity seen. No ecchymosis or swelling noted. Patient has tenderness to palpation of fifth toe and no nailbed or nail damage noted. Small superficial 0.5 cm laceration located in the webspace between the fourth and fifth toe. Minimal active bleeding no foreign body seen. Neuro: COMMON NORMALS: patient oriented x3 SENSORIUM/ORIENTATION: Yes alert GAIT: Yes Normal gait present Skin: GENERAL SKIN EXAM: dry skin Procedures Laceration Laceration 1: Site: lower extremity (Fifth toe) Side (If applicable): left Size (cm): 0.5 Description: linear Depth: simple, single layer Pre-repair: irrigated extensively (With normal saline) Skin layer closed with: other (Dermabond) Technique: other (Dermabond) Course Vital Signs: Vital signs: Vital Signs Temperature 97.9 F 05/23/22 07:17 Pulse Rate 73 05/23/22 08:45 Respiratory Rate 16 05/23/22 08:45 Blood Pressure 134/106 05/23/22 08:45 Pulse Oximetry 96 05/23/22 08:45 Oxygen Delivery Me thod Room Air 05/23/22 07:17 MDM - Wound/Laceration Medical Decision Making Patient is a 36-year-old female comes to the ED with injury to left foot. Injury occurred this morning just prior to arrival. She was walking in her house and kicked the edge of a chair with her fifth toe. She has a laceration in the webspace between her fourth and fifth toe. She rates her pain currently a 9 out of 10. Denies any other injury or trauma. Vitals are stable. Left foot?no visible deformity seen. No ecchymosis or swelling noted. Patient has tenderness to palpation of fifth toe and no nailbed or nail damage noted. Small superficial 0.5 cm laceration located in the webspace between the fourth and fifth toe. Minimal active bleeding no foreign body seen. Wound was irrigated extensively with normal saline and some Dermabond was placed to help close the wound. X-ray of left foot shows fracture at the base of proximal phalanx. I placed order with case management for patient to be referred to podiatry for follow-up on fracture. Patient's toe was marissa taped and she was put in a postsurgical stiff soled shoe. Patient was stable for discharge home and sent home with a prescription for Keflex. She was also given updated tetanus here in the ED. Patient understood and agreed with plan. Lab Data Radiology Impressions Foot X-Ray 05/23/22 07:16 Impression: Fracture of the base of proximal phalanx of the left fifth toe. Discharge Plan Discharge Patient Disposition: Home Clinical Impression: Fracture of toe of left foot, Laceration of toe of left foot Condition: Stable Prescriptions: New cephalexin 500 mg capsule 500 mg PO Q6H 7 Days Qty: 28 0RF No Action clindamycin HCl 150 mg capsule 450 mg PO TID 7 Days Qty: 63 0RF hydrocodone-acetaminophen 7.5-325 mg tablet 1 tab PO Q8H PRN doxycycline hyclate 100 mg capsule 100 mg PO BID escitalopram oxalate [Lexapro] 10 mg tablet 10 mg PO DAILY diclofenac sodium 50 mg tablet,delayed release (DR/EC) 50 mg PO Q12H PRN (Reason: pain) Qty: 20 0RF Discharge Orders: Discharge ED (Routine); Ordered 05/23/22 Ordered By: Silviano Green Referrals: Zen Motta DO [Primary Care Provider] - Discharge Diet: Regular Discharge Activity: Limit activity as instructed Patient Instructions: Laceration (ED) Activity Restrictions/Additional Instructions: Take full course of antibiotics as prescribed. Case management should be contacting you in the next several days to set up an appointment with podiatry for follow-up on fracture. Wear stiff soled shoe and keep fourth and fifth toes marissa taped. keep laceration site clean and dry for the next 48 hours, then clean daily with soap and water and cover with bandage. Watch for signs of infection such as redness, warmth, increased tenderness and puslike drainage. If you see the signs of infection return to the ED, urgent care or PCP for reevaluation. Continue taking all home meds. Follow discharge plans as discussed. You can return to the ED if symptoms worsen. Coding Level of Care Code ED Unhairing Machine Operator for Rebecca Gallego
[2022-05-23] MEDS: HYDROcodone-acetaminophen 7.5-325 mg Tablet 1 TAB PO (07:24)
[2022-05-23] MEDS: ondansetron 4 MG Tablet PO (07:25)
[2022-05-23] MEDS: tetanus-dipt-pertussis 0.5 mL SDV IM (08:31)
[2022-05-23 08:44] VITALS: BP 134/106; PULSE 73; RESP 16; O2SAT 96
[2022-05-23 08:45] VITALS: BP 134/106; PULSE 73; RESP 16; O2SAT 96
--- NOTE | 2022-05-23 09:47 | DCPLANNER ---
Addendum entered by Jeannette Mccollum 05/24/22 08:24: process development manager received the following message from the ortho clinic regarding follow up appointment: Left vm/will try again tomorrow Original Note: process development manager had message to schedule a follow up appointment for patient with podiatry. process development manager sent patients information to the front office staff at podiatry. Patients information will be printed and reviewed. Clinic will call patient with appointment information.
== END 2022-05-23 08:46 | disposition home or self-care (01) ==
PROVIDERS: Emergency Provider Physician Assistant; PCP Family Medicine
DX: S92.515A Nondisplaced fracture of proximal phalanx of left lesser toe(s), initial encounter for closed fracture (principal); S91.115A Laceration without foreign body of left lesser toe(s) without damage to nail, initial encounter; F17.210 Nicotine dependence, cigarettes, uncomplicated; W22.09XA Striking against other stationary object, initial encounter; Z23 Encounter for immunization
CPT/HCPCS: 12001; 73630; 90471; 90715; 99283; Q0162

== ENCOUNTER → 2022-07-06 14:26 | Outpatient (BNVA) | payer BC, MEDICAID, SELFPAY | PROVIDERS: PCP Family Medicine; Visit Provider Family Medicine | DX: Z00.00 Encounter for general adult medical examination without abnormal findings (principal); F41.9 Anxiety disorder, unspecified; M62.838 Other muscle spasm; Z13.6 Encounter for screening for cardiovascular disorders; E03.9 Hypothyroidism, unspecified | CPT/HCPCS: 80053; 80061; 84443; 85025 ==

== ENCOUNTER 2023-04-18 16:56 | Outpatient (CLI) | payer OTHER, SELFPAY ==
--- NOTE | 2023-04-18 16:59 | XRR_ITS ---
PROCEDURE INFORMATION: Exam: XR Chest Exam date and time: 04/18/2023 5:09 PM Age: 37 years old Clinical indication: Abnormal findings; Lung mass or nodule; Single or solitary nodule; Patient HX: Left lung nodule; Additional info: R91.1 - solitary pulmonary nodule TECHNIQUE: Imaging protocol: Radiologic exam of the chest. Views: 2 views. COMPARISON: CR XR chest 2V* [id number] 04/28/2017 9:39 AM FINDINGS: Lungs: No focal consolidation. Pleural spaces: No evidence of pneumothorax. No evidence of pleural effusion. Heart/Mediastinum: Cardiomediastinal silhouette is within normal limits. Bones/joints: No evidence of acute osseous abnormality. XR/XR chest 2V insp/exp [id number] IMPRESSION: 1. No acute cardiopulmonary abnormality. If there is ongoing clinical concern, including concern for pulmonary nodule, consider correlation with CT.
== END 2023-04-18 16:57 | disposition home or self-care (01) ==
LOC: RAD 16:58
PROVIDERS: PCP Family Medicine; Visit Provider Family Medicine
DX: R91.1 Solitary pulmonary nodule (principal); F41.9 Anxiety disorder, unspecified; R63.5 Abnormal weight gain
CPT/HCPCS: 71046